=== PATIENT | female | born 1985 | race Caucasian/White ===

== ENCOUNTER 2022-05-28 12:42 | Inpatient (IN) ==
[2022-05-28] MEDS ORDERED: Promethazine INJ(RESTRICTED) 25 MG/ML 1 ml VIAL IV PRN (13:32)
[2022-05-28] MEDS ORDERED: Lactated Ringers 1000 ml BAG 1,000 ML IV ONE (13:32)
[2022-05-28] MEDS ORDERED: Buffered Lidocaine 1% SYRIN 1 ml INTRADERM ONE (13:32)
[2022-05-28] MEDS ORDERED: Lactated Ringers 1000 ml BAG 1,000 ML IV SCH (14:00)
[2022-05-28] MEDS ORDERED: Oxytocin 10 UNITS/ML 1 ML VIAL IM PRN (21:11)
[2022-05-28] MEDS ORDERED: Witch Hazel PAD JAR TOPICAL PRN (21:11)
[2022-05-28] MEDS: Dibucaine 1% OINT 28.35 GM TUBE PR PRN (23:00)
[2022-05-29 15:58] LABS: ABS Lymphocytes 2.9 10^3/ul (1.0-4.8); ABS Monocytes 1.1 10^3/ul (0-0.8); ABS Neutrophils 11.8 10^3/ul (1.5-7.7); Eosinophil % 0.2 %; Hematocrit 28 % (35-47); Hemoglobin 9.4 g/dL (12.0-16.0); Lymphocyte % 18.4 %; Mean Corpuscular HGB Conc 34 g/dL (31-36); Mean Corpuscular Hemoglobin 32 pg (27-31); Mean Corpuscular Volume 93 fL (80-97); Mean Platelet Volume 7.1 fL (7.4-10.4); Platelet Count 224 10^3/uL (150-450); Red Blood Count 2.97 10^6 /uL (3.70-4.87); Red Cell Distribution Width 14 % (10-15); White Blood Count 15.9 10^3/uL (3.5-10.8)
[2022-05-30 08:09] VITALS: BP 92/49
[2022-05-30] MEDS: Dibucaine 1% OINT 28.35 GM TUBE PR PRN (10:44)
== END 2022-05-30 17:00 | disposition home or self-care (01) | DRG 560 ==
LOC: MCHOBOUT 12:42 → MCHOB 13:32
PROVIDERS: ADMIT Registered Nurse; ATTEND Registered Nurse